=== PATIENT | male | born 1980 | race Caucasian/White ===

== ENCOUNTER 2021-03-23 23:02 | Emergency (ER) | payer SELFPAY ==
[~2021-03-23] VITALS: Ht 182.9 cm; Wt 81.6 kg
[2021-03-23] MEDS ORDERED: AUGMENTIN 875-1 EACH PO (23:42)
== END 2021-03-24 00:10 | disposition home or self-care (01) ==
LOC: ER 23:29
DX: M79.604 Pain in right leg (principal); F17.210 Nicotine dependence, cigarettes, uncomplicated
CPT/HCPCS: 99282

== ENCOUNTER 2021-04-12 15:43 | Emergency (ER) | payer SELFPAY ==
[~2021-04-12] VITALS: Ht 182.9 cm; Wt 81.6 kg
[~2021-04-12 15:43] MED LIST: AUGMENTIN 875-1 EACH PO
[2021-04-12] MEDS ORDERED: ONDANSETRON HCL INJ 2MG/ML 2ML 2 MG/ML VIAL IV STA (16:11)
[2021-04-12] MEDS ORDERED: SODIUM CHLORIDE 0.9% 1000ML 1,000 ML IV STA (16:11)
[2021-04-12 16:19] LABS: BASOPHILS % 0.3 % (0.0-1.0); EOSINOPHILS # (AUTO) 0.1 (0.0-0.4); EOSINOPHILS % 1.8 % (0.0-6.0); HEMATOCRIT 40.7 % (38.2-49.6); HEMOGLOBIN 13.4 g/dL (14.0-18.0); LYMPHOCYTES # (AUTO) 1.5 (1.0-3.2); LYMPHOCYTES % 24.9 % (18.0-39.1); MEAN CORPUSCULAR HEMOGLOBIN 28.4 pg (28-32); MEAN CORPUSCULAR HGB CONC 32.9 g/dL (31-35); MEAN CORPUSCULAR VOLUME 86.2 fL (81-99); MONOCYTES # (AUTO) 0.5 (0.2-0.8); MONOCYTES % 8.7 % (4.4-11.3); NEUTROPHILS # (AUTO) 3.9 (2.1-6.9); PLATELET COUNT 449 x10e3/uL (140-360); RED BLOOD COUNT 4.72 x10e6/uL (4.3-5.7); RED CELL DISTRIBUTION WIDTH 13.9 % (11.7-14.4)
[2021-04-12 16:36] LABS: ALBUMIN 3.6 g/dL (3.5-5.0); ALBUMIN/GLOBULIN RATIO 0.9 (0.8-2.0); ANION GAP 12.6 mmol/L (8-16); CALCIUM 8.4 mg/dL (8.4-10.2); CREATININE, SERUM 0.82 mg/dL (0.72-1.25); MAGNESIUM 1.9 MG/DL (1.3-2.1); POTASSIUM 3.6 mmol/L (3.5-5.1)
[2021-04-12 17:55] LABS: CLARITY,URINE CLEAR (CLEAR); COLOR,URINE YELLOW (YELLOW); LEUKOCYTE ESTERASE ,URINE NEGATIVE (NEGATIVE); NITRITE,URINE NEGATIVE (NEGATIVE); PROTEIN,URINE DIPSTICK NEGATIVE (NEGATIVE)
[2021-04-12 17:56] LABS: KETONES,URINE NEGATIVE (NEGATIVE); URINE UROBILINOGEN 0.2 mg/dL (0.2 - 1)
[2021-04-12 18:12] LABS: RBC,URINE 0-5 /HPF (0-5); WBC,URINE (MAN) 0-5 /HPF (0-5)
[2021-04-12 18:13] LABS: MUCUS,URINE FEW (RARE)
[2021-04-12 18:25] VITALS: BP 119/73
== END 2021-04-12 18:27 | disposition home or self-care (01) ==
LOC: ER 15:53
DX: R11.2 Nausea with vomiting, unspecified (principal); K52.9 Noninfective gastroenteritis and colitis, unspecified; F17.210 Nicotine dependence, cigarettes, uncomplicated
CPT/HCPCS: 36415; 80053; 81001; 83735; 85025; 87086; 99284; C9113; J2405; J7030

== ENCOUNTER 2021-06-20 14:21 | Emergency (ER) | payer SELFPAY ==
[~2021-06-20] VITALS: Ht 182.9 cm; Wt 81.6 kg
== END 2021-06-20 15:16 | disposition home or self-care (01) ==
LOC: ER 14:31
DX: M79.661 Pain in right lower leg (principal); G89.29 Other chronic pain
CPT/HCPCS: 99281

== ENCOUNTER 2021-07-08 19:54 | Emergency (ER) | payer SELFPAY ==
[~2021-07-08] VITALS: Ht 182.9 cm; Wt 81.6 kg
[2021-07-08] MEDS ORDERED: ONDANSETRON HCL 4 MG ORAL DISINTEGRATING TAB PO ONE (20:15)
[2021-07-08] MEDS ORDERED: DOXYCYCLINE HY100 MG PO (20:16)
[2021-07-08] MEDS ORDERED: ZOFRAN4 MG PO (20:17)
[2021-07-08] MEDS ORDERED: FAMOTIDINE20 MG PO (20:17)
[2021-07-08] MEDS ORDERED: ONDANSETRON HCL 4 MG ORAL DISINTEGRATING TAB ONE (20:28)
== END 2021-07-09 02:30 | disposition home or self-care (01) ==
LOC: FSED 20:20
DX: M79.661 Pain in right lower leg (principal); G89.29 Other chronic pain; R11.0 Nausea
CPT/HCPCS: 99282; Q0162

== ENCOUNTER 2021-07-15 21:07 | Emergency (ER) | payer SELFPAY ==
[~2021-07-15] VITALS: Ht 182.9 cm; Wt 81.6 kg
[~2021-07-15 21:07] MED LIST changes: +DOXYCYCLINE HY100 MG PO; +FAMOTIDINE20 MG PO; +ZOFRAN4 MG PO
[2021-07-15] MEDS: ONDANSETRON HCL 4 MG ORAL DISINTEGRATING TAB PO ONE ×2 (21:15→21:45)
[2021-07-15] MEDS ORDERED: ONDANSETRON ODT4 MG PO (21:50)
[2021-07-15] MEDS ORDERED: PEPCID20 MG PO (21:50)
[2021-07-15] MEDS ORDERED: ONDANSETRON HCL 4 MG ORAL DISINTEGRATING TAB ONE (21:54)
[2021-07-15 22:14] VITALS: BP 109/62
== END 2021-07-15 22:16 | disposition home or self-care (01) ==
LOC: ER 21:18
DX: R50.9 Fever, unspecified (principal); R11.0 Nausea
CPT/HCPCS: 99282; Q0162

== ENCOUNTER 2021-08-11 20:25 | Emergency (ER) | payer SELFPAY ==
[~2021-08-11] VITALS: Ht 180.3 cm; Wt 81.6 kg
[~2021-08-11 20:25] MED LIST changes: +ONDANSETRON ODT4 MG PO; +PEPCID20 MG PO
[2021-08-11] MEDS ORDERED: ACETAMINOPHEN 325 MG TAB PO ONE (21:45)
== END 2021-08-11 22:03 | disposition home or self-care (01) ==
LOC: ER 21:35
DX: M79.671 Pain in right foot (principal); Y93.01 Activity, walking, marching and hiking
CPT/HCPCS: 99282

== ENCOUNTER 2021-08-14 22:20 | Emergency (ER) | payer SELFPAY ==
[~2021-08-14] VITALS: Ht 180.3 cm; Wt 81.6 kg
[2021-08-14] MEDS ORDERED: IBUPROFEN 600 MG TAB ONE ×2 (22:39)
== END 2021-08-14 22:40 | disposition home or self-care (01) ==
LOC: ER 22:21
DX: M71.371 Other bursal cyst, right ankle and foot (principal)
CPT/HCPCS: 99282

== ENCOUNTER 2021-09-10 16:20 | Emergency (ER) | payer SELFPAY ==
[~2021-09-10] VITALS: Ht 182.9 cm; Wt 81.6 kg
[2021-09-10 17:11] VITALS: BP 120/64
== END 2021-09-10 17:11 | disposition home or self-care (01) ==
LOC: ER 17:08
DX: R05.9 Cough, unspecified (principal); J30.9 Allergic rhinitis, unspecified; F17.210 Nicotine dependence, cigarettes, uncomplicated
CPT/HCPCS: 99282

== ENCOUNTER 2021-09-20 19:01 | Emergency (ER) | payer SELFPAY ==
[~2021-09-20] VITALS: Ht 180.3 cm; Wt 74.8 kg
== END 2021-09-20 19:35 | disposition home or self-care (01) ==
LOC: ER 19:18
DX: J30.9 Allergic rhinitis, unspecified (principal); F17.210 Nicotine dependence, cigarettes, uncomplicated
CPT/HCPCS: 99282

== ENCOUNTER 2021-09-20 23:14 | Emergency (ER) | payer SELFPAY ==
[~2021-09-20] VITALS: Ht 180.3 cm; Wt 74.8 kg
[2021-09-21] MEDS ORDERED: ONDANSETRON HCL 4 MG ORAL DISINTEGRATING TAB PO ONE (00:30)
[2021-09-21] MEDS ORDERED: ONDANSETRON HCL 4 MG ORAL DISINTEGRATING TAB ONE (00:36)
== END 2021-09-21 00:46 | disposition home or self-care (01) ==
LOC: ER 09-21 00:29
DX: J30.9 Allergic rhinitis, unspecified (principal); R11.0 Nausea
CPT/HCPCS: 99283; Q0162

== ENCOUNTER 2021-11-29 14:01 | Emergency (ER) | payer SELFPAY ==
[~2021-11-29] VITALS: Ht 180.3 cm; Wt 74.8 kg
[2021-11-29] MEDS ORDERED: ONDANSETRON HCL 4 MG ORAL DISINTEGRATING TAB PO ONE (14:15)
[2021-11-29 14:46] VITALS: BP 118/76
== END 2021-11-29 14:47 | disposition home or self-care (01) ==
LOC: ER 14:07
DX: R11.0 Nausea (principal); F20.9 Schizophrenia, unspecified; F90.9 Attention-deficit hyperactivity disorder, unspecified type; F17.210 Nicotine dependence, cigarettes, uncomplicated
CPT/HCPCS: 99281; Q0162

== ENCOUNTER 2021-12-04 22:04 | Emergency (ER) | payer SELFPAY ==
[~2021-12-04] VITALS: Ht 180.3 cm; Wt 74.8 kg
[2021-12-04] MEDS ORDERED: PEPCID20 MG PO (22:21)
== END 2021-12-04 22:24 | disposition home or self-care (01) ==
LOC: ER 22:09
DX: R11.0 Nausea (principal); F20.9 Schizophrenia, unspecified; F90.9 Attention-deficit hyperactivity disorder, unspecified type; F17.210 Nicotine dependence, cigarettes, uncomplicated
CPT/HCPCS: 99282

== ENCOUNTER 2022-01-03 19:10 | Emergency (ER) | payer SELFPAY ==
[~2022-01-03] VITALS: Ht 180.3 cm; Wt 74.8 kg
== END 2022-01-03 19:28 | disposition home or self-care (01) ==
LOC: ER 19:15
DX: R10.13 Epigastric pain (principal); R11.2 Nausea with vomiting, unspecified; G89.29 Other chronic pain; F31.9 Bipolar disorder, unspecified; F20.9 Schizophrenia, unspecified; F90.9 Attention-deficit hyperactivity disorder, unspecified type; F17.210 Nicotine dependence, cigarettes, uncomplicated
CPT/HCPCS: 99283

== ENCOUNTER 2022-01-26 18:56 | Emergency (ER) | payer SELFPAY ==
[~2022-01-26] VITALS: Ht 180.3 cm; Wt 74.8 kg
== END 2022-01-26 19:10 | disposition home or self-care (01) ==
LOC: ER 19:01
DX: M79.672 Pain in left foot (principal); M79.671 Pain in right foot; F20.9 Schizophrenia, unspecified
CPT/HCPCS: 99282

== ENCOUNTER 2022-05-22 20:06 | Emergency (ER) | payer SELFPAY ==
[~2022-05-22] VITALS: Ht 180.3 cm; Wt 74.8 kg
[2022-05-22] MEDS ORDERED: ONDANSETRON ODT4 MG PO (20:19)
[2022-05-22] MEDS ORDERED: ONDANSETRON HCL 4 MG ORAL DISINTEGRATING TAB PO ONE (20:30)
== END 2022-05-22 20:26 | disposition home or self-care (01) ==
LOC: ER 20:11
DX: R11.2 Nausea with vomiting, unspecified (principal); F31.9 Bipolar disorder, unspecified; F20.9 Schizophrenia, unspecified; F17.210 Nicotine dependence, cigarettes, uncomplicated
CPT/HCPCS: 99283; Q0162

== ENCOUNTER 2022-05-29 17:04 | Emergency (ER) | payer SELFPAY ==
[~2022-05-29] VITALS: Ht 180.3 cm; Wt 74.8 kg
== END 2022-05-29 18:10 | disposition home or self-care (01) ==
LOC: ER 17:09
DX: R42 Dizziness and giddiness (principal); F20.9 Schizophrenia, unspecified; F31.9 Bipolar disorder, unspecified; F90.9 Attention-deficit hyperactivity disorder, unspecified type
CPT/HCPCS: 99282

== ENCOUNTER 2022-07-10 21:18 | Emergency (ER) | payer SELFPAY ==
[~2022-07-10] VITALS: Ht 180.3 cm; Wt 74.8 kg
[2022-07-10] MEDS ORDERED: ACETAMINOPHEN 325 MG TAB PO ONE (21:45)
[2022-07-10] MEDS ORDERED: ACETAMINOPHEN 325 MG TAB ONE (21:50)
== END 2022-07-10 22:35 | disposition home or self-care (01) ==
LOC: ER 21:32
DX: R25.2 Cramp and spasm (principal); M79.604 Pain in right leg; G89.29 Other chronic pain; F20.9 Schizophrenia, unspecified; F17.210 Nicotine dependence, cigarettes, uncomplicated
CPT/HCPCS: 99282

== ENCOUNTER 2023-03-19 21:17 | Emergency (ER) | payer SELFPAY ==
[~2023-03-19] VITALS: Ht 180.3 cm; Wt 74.8 kg
[2023-03-19 22:14] VITALS: O2SAT 99
[2023-03-19] MEDS ORDERED: FAMOTIDINE 20 MG TAB PO ONE (23:30)
== END 2023-03-19 23:51 | disposition home or self-care (01) ==
LOC: ER 21:48
DX: R10.13 Epigastric pain (principal); K29.70 Gastritis, unspecified, without bleeding; F20.9 Schizophrenia, unspecified
CPT/HCPCS: 93005; 99282

== ENCOUNTER 2024-05-07 22:36 | Emergency (ER) | payer SELFPAY ==
[~2024-05-07] VITALS: Ht 210.8 cm; Wt 81.6 kg
[~2024-05-07 22:36] MED LIST changes: +HYDROXYZINE HCL25 MG PO
[2024-05-07 22:38] VITALS: PULSE 82; RESP 18; TEMP 99.1; O2SAT 99
== END 2024-05-07 22:50 | disposition home or self-care (01) ==
LOC: ER 22:45
DX: S90.862A Insect bite (nonvenomous), left foot, initial encounter (principal); S90.861A Insect bite (nonvenomous), right foot, initial encounter; F20.9 Schizophrenia, unspecified; Z59.00 Homelessness unspecified
CPT/HCPCS: 99282

== ENCOUNTER → 2024-05-09 | Emergency (ER) | END | disposition left against medical advice (07) | LOC: ER 16:30 | DX: R09.89 Other specified symptoms and signs involving the circulatory and respiratory systems (principal) ==